=== PATIENT | female | born 1945 | race Caucasian/White ===

== ENCOUNTER 2019-09-18 13:46 | Outpatient (CLI) | payer MEDICARE, SELFPAY ==
--- NOTE | ~2019-09-18 | DEXA_ITS ---
Bone Density Report Name: Vaishnavi Garcia Age: 74 Sex: Female Ethnicity: White Date of : 1945 Indication: postmenopausal; height loss; Referring Provider: BILLY GEORGE Study: Bone densitometry was performed. Exam Date: September 18, 2019 Accession number: [id number] Bone Density: Region BMD T-score Z-score Classification AP Spine (L1, L4) 1.294 2.3 4.6 Normal Femoral Neck (Left) 0.707 -1.3 0.7 Osteopenia Total Hip (Left) 1.000 0.5 2.1 Normal Total Hip Bilateral Avg 0.961 0.2 1.8 Normal Femoral Neck (Right) 0.704 -1.3 0.6 Osteopenia Total Hip (Right) 0.920 -0.2 1.5 Normal World Health Organization criteria for BMD impression classify patients as: Normal (T-score at or above -1.0), Osteopenia (T-score between -1.0 and -2.5), or Osteoporosis (T-score at or below -2.5). 10-year Fracture Risk(1): Major Osteoporotic Fracture 10% Hip Fracture 1.5% Reported Risk Factors: [place] (), Neck BMD=0.704, BMI=24.6 (1) FRAX(R) Version 3.08. Fracture probability calculated for an untreated patient. Fracture probability may be lower if the patient has received treatment. Previous Exams: Region Exam Age BMD T-score BMD Change BMD Change Date g/cm2 vs Baseline vs Previous AP Spine(L1, L4) 09/18/2019 74 1.294 2.3 0.170(15.1%)* 0.170(15.1%)* 01/13/2015 69 1.125 0.8 Total Hip(Left) 09/18/2019 74 1.000 0.5 0.071(7.6%)* 0.071(7.6%)* 01/13/2015 69 0.929 -0.1 Total Hip(Right) 09/18/2019 74 0.920 -0.2 0.029(3.2%)* 0.029(3.2%)* 01/13/2015 69 0.891 -0.4 *Denotes significance at 95% confidence level, LSC for AP Spine = 0.022 g/cm2, LSC for Total Hip = 0.027 g/cm2 Clinical Information Provided by Patient: Patient maximum height was 67 Menopause Age: 53 Drinks caffeinated beverages Onset of menses at age 16 Number of children 1 Impression: The patient has low bone mass, based on the Left Femoral Neck T-score. The patient has an estimated ten-year risk of hip fracture of 1.5% and an estimated ten-year risk of major fracture of 10%, based on the WHO FRAX algorithm. No significant bone loss was observed. Discussion: BONE DENSITY IS LOW AT ONE OR MORE SKELETAL SITES. This patient's lowest T-score is low at one or more skeletal sites. It meets the World Health Organization's (WHO) criteria for ?low bone mass? (T-score between -1.0 and -2.5). The patient's 10-year risk of fracture as calculated by FRAX is l
--- NOTE | ~2019-09-18 | MM_ITS ---
EXAMINATION: MM screening arik BI w joseph HISTORY: Screening mammogram TECHNIQUE: Craniocaudal and mediolateral oblique 3-D tomosynthesis images were obtained and synthetic 2-D images were generated. CAD analysis was submitted and interpreted. COMPARISON: 02/09/2016, 01/13/2015 bilateral implant digital screening mammogram examinations BREAST PARENCHYMAL COMPOSITION: The breasts are heterogeneously dense, which may obscure small masses . FINDINGS: Status post bilateral augmentation mammoplasty. There is no evidence of suspicious mass, ca lcification, or architectural distortion to suggest malignancy in either breast. There has been no barajas spicious interval change. IMPRESSION: 1. No mammographic evidence of malignancy. 2. Recommend routine screening mammography in one year. BI-RADS Category 1: Negative Reviewed, dictated and finalized at location B. TANKER CAPTAIN
== END 2019-09-18 13:47 | disposition home or self-care (01) ==
LOC: ANHIMG 13:50
PROVIDERS: PCP Internal Medicine; Visit Provider Internal Medicine
DX: Z12.31 Encounter for screening mammogram for malignant neoplasm of breast (principal); Z79.899 Other long term (current) drug therapy; N95.9 Unspecified menopausal and perimenopausal disorder; Z78.0 Asymptomatic menopausal state; M85.852 Other specified disorders of bone density and structure, left thigh; M85.851 Other specified disorders of bone density and structure, right thigh
CPT/HCPCS: 77063; 77067; 77080

== ENCOUNTER 2020-02-13 13:53 | Outpatient (CLI) | payer MEDICARE, SELFPAY ==
[2020-02-13 14:40] LABS: Magnesium 2.1 mg/dL (1.6-2.3)
== END 2020-02-13 13:54 | disposition home or self-care (01) ==
LOC: ANHLAB 13:56
PROVIDERS: PCP Internal Medicine; Visit Provider Internal Medicine
DX: I47.1 Supraventricular tachycardia (principal); Z79.899 Other long term (current) drug therapy
CPT/HCPCS: 36415; 83735

== ENCOUNTER 2020-02-27 13:18 | Outpatient (CLI) | payer MEDICARE, SELFPAY ==
--- NOTE | 2020-02-27 | ECHO_ITS ---
Patient Info Name: Vaishnavi Garcia Age: 74 years : 1945 Gender: Female Ht: 67 in Wt: 140 lbs BSA: 1.73 m2 HR: 72 bpm BP: 139 / 86 mmHg Technical Quality: Fair Exam Date: 02/27/2020 1:44 PM Exam Location: [facility] Patient Status: Outpatient Admit Date: 02/27/2020 Staff Ordering Physician: Itz Rodriguez MD Physician Office Assistant: Rayne Lockett RDCS Attending Provider: Itz Rodriguez MD Referring Physician: Michael YUSUF; Exam Type: CA echo doppler color flow Study Info Indications I47.1 - Supraventricular tachycardia Complete two-dimensional, color flow and Doppler transthoracic echocardiogram is performed. Summary 1. Left ventricular chamber dimension is normal. 2. Left ventricular systolic function is hyperdynamic, estimated at >70%. 3. Resting mean LVOT gradient is 8 mmHg and peak 14 mmHg which is mild obstruction. 4. There is mildly increased left ventricular wall thickness. 5. The left ventricular diastolic function is grade I diastolic dysfunction. 6. E/e' 10 is mildly elevated. 7. Left atrial chamber dimension is mildly enlarged. 8. There is moderate aortic valve sclerosis. 9. Moderate systolic anterior motion of mitral valve. 10. No pulmonary hypertension, estimated pulmonary arterial systolic pressure is 21 mmHg. Left Ventricle E/e' 10 is mildly elevated. Resting mean LVOT gradient is 8 mmHg and peak 14 mmHg which is mild obstruction. Left ventricular chamber dimension is normal. Left ventricular systolic function is hyperdynamic, estimated at >70%. There is mildly increased left ventricular wall thickness. The left ventricular diastolic function is grade I diastolic dysfunction. Right Ventricle Right ventricular chamber dimension is normal. Right ventricular systolic function is normal. Left Atria Left atrial chamber dimension is mildly enlarged. Right Atria Right atrial chamber dimension is normal. Aortic Valve The aortic valve is trileaflet. There is moderate aortic valve sclerosis. There is no aortic valve stenosis. There is no aortic valve regurgitation. Pulmonic Valve There is no pulmonic regurgitation. Mitral Valve Moderate systolic anterior motion of mitral valve. There is no mitral valve stenosis. There is no mitral valve regurgitation. Tricuspid Valve There is no tricuspid valve regurgitation. No pulmonary hypertension, estimated pulmonary arterial systolic pressure is 21 mmHg. Pericardium/Pleural There is no pericardial effusion. Inferior Vena Cava Normal inferior vena cava with >50% collapse upon inspiration consistent with normal right atrial pressure, 5 mmHg. Aorta The aortic root size at the sinus of Valsalva is normal. Left Ventricular Outflow Tract Name Value Normal LVOT 2D LVOT Diameter 2.1 cm LVOT Doppler LVOT Peak Gradient 14 mmHg LVOT Mean Gradient 7 mmHg LVOT VTI 40 cm LVOT VTI/AV VTI Ratio 1.0 LVOT Stroke Volume 137 ml LVOT CO 7.9 l/min
== END 2020-02-27 13:19 | disposition home or self-care (01) ==
PROVIDERS: PCP Internal Medicine; Visit Provider Internal Medicine
DX: I47.1 Supraventricular tachycardia (principal); I95.9 Hypotension, unspecified; I51.7 Cardiomegaly
CPT/HCPCS: 93306

== ENCOUNTER 2020-05-11 09:11 | Outpatient (CLI) | payer MEDICARE, SELFPAY ==
--- NOTE | ~2020-05-11 | CT_ITS ---
EXAMINATION: CT abdomen w con DATE: 05/11/2020 09:45 INDICATION: Abdominal swelling, mass TECHNIQUE: Computed tomography (CT) of the abdomen was performed with 100 cc Omnipaque 350 intravenou s contrast. Automated exposure control and iterative reconstruction technique were employed. Exam dos e: 182.50 mGy-cm total exam DLP. COMPARISON: None. FINDINGS: There is mild primarily dependent bilateral lower lobe atelectasis. Bilateral breast implants. Normal heart size. No pericardial or pleural effusion. There are multiple hepatic cysts, the largest approximately 2.5 cm. Normal splenic size. No pancreati c mass lesion, calcification or ductal dilatation. The gallbladder is present but contracted. No bile duct dilatation. Normal morphology of the adrenal glands. No renal mass lesion or urinary tract calculus or hydroureteronephrosis is evident. Normal appendix. Diverticulosis of the colon; no CT evidence of diverticulitis is detected. No bowel obstruction or intraperitoneal free air is evident. Small fat-containing umbilical hernia. Scoliosis and severe multilevel degenerative disc disease of the lumbar spine. There is associated mi ld retrolisthesis at L2-3 and L3-4. Severe degenerative change at the apophyseal joints. IMPRESSION: Multiple hepatic cysts Diverticulosis of the colon Scoliosis and severe multilevel degenerative disc disease of the lumbar spine Reviewed, dictated and finalized at [facility]. Reviewed, dictated and finalized at location [facility].
[2020-05-11 09:39] LABS: Estimated Glomerular Filt Rate > 60
== END 2020-05-11 09:12 | disposition home or self-care (01) ==
PROVIDERS: PCP Internal Medicine; Visit Provider Internal Medicine
DX: R19.00 Intra-abdominal and pelvic swelling, mass and lump, unspecified site (principal); K57.30 Diverticulosis of large intestine without perforation or abscess without bleeding; K44.9 Diaphragmatic hernia without obstruction or gangrene; K76.89 Other specified diseases of liver; M51.36 Other intervertebral disc degeneration, lumbar region; M41.9 Scoliosis, unspecified
CPT/HCPCS: 74160; Q9967

== ENCOUNTER 2020-11-12 09:59 | Emergency (ER) | payer MEDICARE, SELFPAY ==
[2020-11-12 10:21] VITALS: BP 156/89; PULSE 79; RESP 16; TEMP 37.2; O2SAT 98
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
== END 2020-11-12 10:50 | disposition home or self-care (01) ==
PROVIDERS: Emergency Provider Nurse Practitioner
DX: M25.562 Pain in left knee (principal); S09.93XA Unspecified injury of face, initial encounter; W18.09XA Striking against other object with subsequent fall, initial encounter; H26.9 Unspecified cataract; E78.5 Hyperlipidemia, unspecified; R01.1 Cardiac murmur, unspecified; M85.80 Other specified disorders of bone density and structure, unspecified site; Z79.82 Long term (current) use of aspirin
CPT/HCPCS: 99212; G0463